=== PATIENT | male | born 2000 | race Caucasian/White ===

== ENCOUNTER 2024-05-22 13:14 | Emergency (ER) | payer BC, SELFPAY ==
[2024-05-22 13:15] VITALS: BP 131/89; PULSE 68; RESP 15; TEMP 35.9; O2SAT 97; BMI 29.8
[2024-05-22] MEDS: Lidocaine 1% (20 ml mdv) 20 ML Vial 5 ML INFILT (14:05)
--- NOTE | 2024-05-22 15:24 | CM.ED ---
Social work Reason for referral: no PCP Referral source: case find This SW identified patient's lack of PCP and need for resources. This SW introduced self and role at [facility] while in patient's hallway bed area. Patient confirmed lacking a PCP, but denied needing resources at this time. Patient denied needing anything at this time. Malia Le, WIRE WRAPPING MACHINE OPERATOR, SHIPPING AND RECEIVING WEIGHER
[2024-05-22 16:38] VITALS: BP 122/79; PULSE 70; RESP 16; TEMP 36.6; O2SAT 100
--- NOTE | 2024-05-22 16:46 | EDS_ITS ---
HPI History of Present Illness Chief Complaint: Laceration Narrative Narrative: Patient is a 24-year-old male who is presenting to the ER today with chief complaint of a lip laceration. Patient was working at home, a tree branch excellently hit patient to his upper lip. Patient is not on blood thinners. Patient did not lose conscious. No headache. No neck pain. No nausea or vomiting. Patient has a stellate laceration to the inner mid upper lip, 2 cm, the left side of the lip laceration is gapped approximately 0.5 cm. Patient also has a second lip laceration to his upper lip, not involving the vermilion border, V shaped stellate, 1.5 cm. Patient had no dental injury. No acute complaints. Tetanus is less than 5 years. PFSH PFSH Allergy/AdvReac Type Severity Reaction Status Date / Time No Known Allergies Allergy Verified 05/22/24 13:15 Surgical History (Updated 05/22/24 @ 13:52 by Julia Zhao) H/O shoulder surgery Social History (Updated 05/22/24 @ 13:52 by Julia Zhao) household members: spouse housing: house Smoking Status: Never smoker ROS ROS ED ROS Narrative REVIEW OF SYSTEMS: Unless otherwise stated in this report the patient's positive and negative responses for review of systems for constitutional, eyes, ENT, cardiovascular, respiratory, gastrointestinal, neurological, , mus culoskeletal, and integument systems and related systems to the presenting problem are either stated in the history of present illness or were not pertinent or were negative for the symptoms and/or complaints related to the presenting medical problem. EXAM Physical Exam Narrative Exam Narrative: Vital signs reviewed and patient is not hypoxic. General: The patient appears well and in no apparent distress. Patient is resting comfortably on cart. Not toxic, lethargic, or listless. Skin: Warm, dry, no pallor noted. There is no rash noted. Head: Normocephalic, patient has a stellate, jagged 2 cm laceration to the mid upper lip, the left side of the laceration is 0.5 cm, approximately 2 mm deep. Patient also has another laceration to the outer mid upper lip, not involving the vermilion border, V-shaped, 1.5 cm with the point of the facing cephalad. No dental injury. No signs of [place] fracture. No epistaxis. No septal deviation, no septal hematoma. Eye: Normal conjunctiva, no drainage, EOMI. PERRL. Ears, Nose, Mouth, and Throat: oral mucosa is moist. Nares patent. Mouth without vesicles. Cardiovascular: Regular Rate and Rhythm, no murmurs, gallops, or rubs Respiratory: Patient is in no distress, no accessory muscle use, lungs are clear to auscultation, no wheezing, rales or rhonchi Back: non-tender, GI: Soft, no tenderness Musculoskeletal: The patient has full range of motion of all extremities and joints with no difficulty. Patient has no motor, no sensory deficits. Neurological: A&O x4, normal speech, no focal neurological deficits. Psychiatric: Cooperative Const Vital Signs: 05/22/24 13:15 05/22/24 16:38 Temperature 96.6 F L 98 F Temperature Source Temporal Pulse Rate 68 70 Respiratory Rate 15 16 Blood Pressure 131/89 H 122/79 H Blood Pressure Mean 103 93 Pulse Ox 97 100 Oxygen Delivery Method Room Air MDM MDM MDM Narrative Medical decision making narrative: Procedure note: To mid upper lip lacerations Laceration repair: Done under sterile conditions. The use of Shur-Clens prep the area. Local injection with lidocaine 1% was used, approximately 6 cc. The wound was irrigated copiously with Shur-Clens and then irrigated with 300cc normal saline. The wound was explored there was no evidence of foreign material. The laceration was approximated with 4-0 nylon. 2 simple interrupted sutures were placed to the mid upper lip, outer V-shaped laceration. 1 suture was placed at the point to the VA, the second laceration was placed to the left side where there is slight gapping of the laceration, approximating the wound but not closing entirely. Patient had 3 sutures placed to the mid inner upper lip laceration.. Patient tolerated the procedure well. 5 sutures total were placed. The patient was neurovascularly intact post. the patient had bacitracin applied to the laceration and a dry sterile dressing was place. The patient will need to follow-up in the next 7-10 days for removal. No airway compromise, no difficulty breathing to her procedure. Tina Hogan RN RETIREMENT OFFICER was at bedside for assistance as well. Patient tolerated procedure with no difficulty. Patient seen and examined: 2 lip lacerations. Vermilion border is not interrupted. Differential diagnosis includes but is not limited to: Lip laceration, [place] fracture, head injury, dental fracture, puncture wound Relevant laboratory interpretation: None Radiological studies: None Reevaluation: Bacitracin was applied. Social barriers to healthcare: There are no food insecurities, there is no issue with transportation, there are no insurance barriers Disposition: Patient was discharged. Education was done on using soft diet for the next 2 to 4 days. Patient understands to have the sutures removed in 7 days. This was written on his discharge paperwork as well. Patient will follow-up with urgent care or return back to the ER to have sutures removed. Wound care was discussed at bedside and discharge paperwork. Discharge Plan Triage Chief Complaint: Laceration ED Provider: Espinoza Naranjo Dx/Rx/DC Orders Clinical Impression: CHI (closed head injury), Laceration of lip, Complicated laceration of lip Instructions: ED Head Injury (Adult), ED Laceration, Lip or Mouth Primary Care Provider: Care Physician,No Primary Referrals: Care Physician,No Primary [Primary Care Provider] - Activity Restrictions/Additional Instructions: Sutures out in 7 to 9 days. Soft diet for the next 2 to 3 days. Urgent care or the ER can take out your sutures in 7 to 9 days. Use topical antibiotic ointment 3-4 times a day to upper lip to help prevent infection. Education done on close head injury, lip laceration and wound care. Use Tylenol Motrin [id number] as needed for pain Print Language: Citizen [place] Disposition Disposition: Home, Self Care Discharge Date/Time: 05/22/24 16:39
== END 2024-05-22 16:39 | disposition home or self-care (01) ==
PROVIDERS: Emergency Provider Emergency Medicine; Referring Provider Emergency Medicine; Visit Provider Emergency Medicine
DX: S01.511A Laceration without foreign body of lip, initial encounter (principal); S09.90XA Unspecified injury of head, initial encounter; W20.8XXA Other cause of strike by thrown, projected or falling object, initial encounter
CPT/HCPCS: 12013; 99282